=== PATIENT | female | born 1995 | race Hispanic/Latino ===

== ENCOUNTER 2019-12-15 18:39 | Emergency (ER) | payer OTHER, SELFPAY ==
[2019-12-15] VITALS (7 sets, daily range): BP systolic 112–131; BP diastolic 51–63; PULSE 54–70; RESP 15–16; TEMP 36.6; O2SAT 99–100
--- NOTE | 2019-12-15 19:32 | ED.ABDPAIN ---
HPI - Abdominal Pain General Chief Complaint: Abdominal Pain Stated Complaint: Sharp Pains in Abd, 10 Wks Time Seen by Provider: 12/15/19 19:16 Source: patient and family Mode of arrival: Ambulatory History of Present Illness HPI narrative: Patient here with complains of mid epigastric discomfort radiating to the back. Starting this morning. Patient has had a lot of nausea and vomiting since finding out she was October 02. Has hard time keeping any food down. Able to tolerate water, little to eat, no vaginal discharge or bleeding. No pelvic pain. No urinary complaints. No prior abdominal surgical history. Patient is A1. Had a miscarriage at 6 weeks gestation. Never saw clinical allergist for that . Has not seen community mental health worker for this . First appointment January 13. She is taking vitamins. OB is with the [employer] [facility] Home Medications Medication Instructions Recorded Confirmed prenat.vits,sharlene,[id number] 1 tab PO DAILY 07/01/19 07/01/19 Previous Rx's Medication Instructions Recorded cyclobenzaprine 10 mg tablet 10 mg PO BID #14 tab 07/01/19 Allergies Allergy/AdvReac Type Severity Reaction Status Date / Time No Known Drug Allergies Allergy Verified 07/01/19 16:14 Review of Systems Review of Systems Narrative: GENERAL: Denies chills, fatigue, malaise, fever, sweats. HEENT: Denies sinus pain, ear pain, sore throat, difficulty swallowing, dizziness. RESPIRATORY: Denies dyspnea, cough, wheezing, hemoptysis, sputum. CARDIOVASCULAR: Denies chest pain, palpitations, orthopnea, edema, GASTROINTESTINAL: Complains of epigastric pain, nausea vomiting, no blood in emesis or stools : Denies dysuria, frequency, incontinence, hematuria, urinary retention. No vaginal discharge or bleeding or fluid leak MUSCULOSKELETAL: denies weakness, joint pain, or bony pain SKIN: Denies rash, skin lesions, or other NEUROLOGIC: Denies weakness, headache, numbness, change in speech, confusion, seizures, incoordination. PSYCHIATRIC: No concerning psychosocial issues. ROS Unobtainable: All systems reviewed & are unremarkable except as noted in HPI and below Exam Narrative Exam Narrative: GENERAL: patient appears stated age. Well-nourished, well-developed patient, in no distress, not toxic HEAD: Atraumatic. Normocephalic. EYES: Pupils equal round and reactive. Extraocular motions intact. No scleral icterus. No injection or drainage. ENT: Nose without bleeding, purulent drainage. Throat without erythema, tonsillar hypertrophy or exudate. Airway patent. NECK: Trachea midline. Non tender CARDIOVASCULAR: Regular rate and rhythm without murmurs, gallops, or rubs. RESPIRATORY: Clear to auscultation. Breath sounds equal bilaterally. No wheezes, rales, or rhonchi. GASTROINTESTINAL: Abdomen soft, reproducible epigastric tenderness, bowel sounds normal, no peritoneal signs, EXTREMITIES: No edema or joint tenderness. BACK: Nontender without deformity or crepitance. No flank tenderness. NEURO: AOx3. SKIN: No rash or erythema of visible areas Initial Vital Signs Initial Vital Signs: Vital Signs Temperature 97.8 F 12/15/19 18:50 Pulse Rate 70 12/15/19 18:50 Respiratory Rate 16 12/15/19 18:50 Blood Pressure 117/62 12/15/19 18:50 Pulse Oximetry 100 12/15/19 18:50 Course Course Course Narrative: Patient nausea vomiting and epigastric pain resolved. Has ate and drink here. No vomiting. Orders Ordered: ED Orders 12/15/19 19:15 Urine Microscopic Stat 12/15/19 19:55 Complete Blood Count AUTO DIFF Stat Comprehensive Metabolic Panel Stat HCG Quantitative /Beta subunit Stat Lipase Stat Discontinued Medications Sodium Chloride (Normal Saline 0.9%) 1,000 mls @ 1,000 mls/hr IV BOLUS ONE Stop: 12/15/19 20:28 Last Infusion: 12/15/19 21:46 Dose: 0 mls/hr Documented by: Admin: 12/15/19 20:02 Dose: 1,000 mls/hr Documented by: NATE Sodium Chloride (Normal Saline 0.9%) 1,000 mls @ 1,000 mls/hr IV BOLUS ONE Stop: 12/15/19 23:11 Last Infusion: 12/15/19 23:31 Dose: 0 mls/hr Documented by: Admin: 12/15/19 22:57 Dose: 1,000 mls/hr Documented by: JOYCE Ondansetron HCl (Zofran) 4 mg IV NOW ONE Stop: 12/15/19 21:39 Last Admin: 06/29/20 21:48 Dose: 4 mg Documented by: JOYCE Reevaluation(s) Reevaluation #1: Patient no distress. Has already ate and drank. Finishing 2nd L of normal saline. No nausea or vomiting. She desires discharge home. at bedside. She does have follow-up OBGYN at the [facility]. 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 Time: 23:21 Vital Signs Vital signs: Vital Signs - 8 hr 12/15/19 18:50 12/15/19 22:00 12/15/19 22:30 Temperature 97.8 F Pulse Rate 70 54 L 57 L Respiratory Rate 16 16 15 Blood Pressure 117/62 113/51 L 131/63 Pulse Oximetry 100 99 99 12/15/19 22:40 12/15/19 22:50 12/15/19 23:01 Temperature Pulse Rate 55 L 60 68 Respiratory Rate 16 Blood Pressure 112/58 L Pulse Oximetry 99 99 100 12/15/19 23:20 Temperature Pulse Rate 54 L Respiratory Rate Blood Pressure Pulse Oximetry 100 MDM - Abdominal Pain Differential Diagnosis Differential diagnosis: Likely abdominal pain Lab Data Attestation: I reviewed the patient's lab results. Result diagrams: 12/15/19 19:55 12/15/19 19:55 Labs: Lab Results 12/15/19 12/15/19 12/15/19 Range/Units 19:15 19:55 19:55 WBC 12.4 H (4.5-11.0) X10^3/uL RBC 4.00 (4.0-5.2) X10^6/uL Hgb 12.0 (12.0-16.0) g/dL Hct 34.1 L (36-46) % MCV 85.1 (80-100) fL MCH 30.0 (26-34) PG MCHC 35.2 (30-36) % RDW 12.7 (11.6-14.8) % Plt Count 317 (150-400) X10^3/uL Neut % (Auto) 63.1 (50-75) % Lymph % (Auto) 29.2 (25-40) % [place] % (Auto) 5.0 (3-14) % Eos % (Auto) 1.9 L (2-4) % Baso % (Auto) 0.8 (0-2) % Neut # (Auto) 7800 H (5690-6628) /uL Lymph # (Auto) 3600 (4715-3847) /uL [place] # (Auto) 600 (0-900) /uL Eos # (Auto) 200 (0-450) /uL Baso # (Auto) 100 (0-100) /uL Sodium (137-145) mmol/L Potassium (3.4-5.1) mmol/L Chloride (98-107) mmol/L Carbon Dioxide (22-32) mmol/L BUN (7-17) mg/dL Creatinine (0.52-1.04) mg/dL Estimated GFR (>60) mL/min BUN/Creatinine Ratio (6-22) Glucose (70-100) mg/dL Calcium (8.4-10.2) mg/dL Total Bilirubin (0.2-1.3) mg/dL AST (14-36) IU/L ALT (<35) IU/L Alkaline Phosphatase (38-126) U/L Total Protein (6.3-8.2) g/dL Albumin (3.5-5.0) g/dL Globulin (1.7-4.1) g/dL Albumin/Globulin Ratio (1.0-2.8) Lipase 48 (23-300) U/L HCG, Quant 315003 mIU/mL Urine RBC 0-1/hpf (0-5/HPF) Urine WBC 0-1/hpf (0-5/HPF) Urine Bacteria None seen (None) Ur Culture Indicated? Cult not indicated 12/15/19 Range/Units 19:55 WBC (4.5-11.0) X10^3/uL RBC (4.0-5.2) X10^6/uL Hgb (12.0-16.0) g/dL Hct (36-46) % MCV (80-100) fL MCH (26-34) PG MCHC (30-36) % RDW (11.6-14.8) % Plt Count (150-400) X10^3/uL Neut % (Auto) (50-75) % Lymph % (Auto) (25-40) % [place] % (Auto) (3-14) % Eos % (Auto) (2-4) % Baso % (Auto) (0-2) % Neut # (Auto) (0577-9270) /uL Lymph # (Auto) (9134-6891) /uL [place] # (Auto) (0-900) /uL Eos # (Auto) (0-450) /uL Baso # (Auto) (0-100) /uL Sodium 135 L (137-145) mmol/L Potassium 4.3 (3.4-5.1) mmol/L Chloride 105 (98-107) mmol/L Carbon Dioxide 22 (22-32) mmol/L BUN 9 (7-17) mg/dL Creatinine 0.41 L (0.52-1.04) mg/dL Estimated GFR > 60.0 (>60) mL/min BUN/Creatinine Ratio 22.0 (6-22) Glucose 85 (70-100) mg/dL Calcium 10.2 (8.4-10.2) mg/dL Total Bilirubin 0.3 (0.2-1.3) mg/dL AST 20 (14-36) IU/L ALT 11 (<35) IU/L Alkaline Phosphatase 57 (38-126) U/L Total Protein 7.3 (6.3-8.2) g/dL Albumin 4.3 (3.5-5.0) g/dL Globulin 3.0 (1.7-4.1) g/dL Albumin/Globulin Ratio 1.4 (1.0-2.8) Lipase (23-300) U/L HCG, Quant mIU/mL Urine RBC (0-5/HPF) Urine WBC (0-5/HPF) Urine Bacteria (None) Ur Culture Indicated? Point of care testing: Urine Dip Bedside Urine Glucose Negative Bedside Urine Bilirubin - Negative Bedside Urine Ketone ++ 40 Urine Specific [place] 1.010 Bedside Urine Occult Blood +/- Bedside Urine pH 6.0 Bedside Urine Protein - Negative Bedside Urine Urobilinogen - Negative Bedside Urine Nitrite - Negative Bedside Urine Leukocytes - Negative Esterase MDM Narrative Medical decision making narrative: No pelvic exam at this time, no pelvic pain, no complaints of vaginal discharge or bleeding or fluid leakage. Patient has had daily nearly intractable nausea and vomiting likely causing gastritis, likely hyperemesis No ultrasound indicate testing. Patient is 10 weeks . No no no pelvic pain. Pain is epigastric in reproducible. Low suspicion for ectopic or miscarriage. Discharge Plan Departure Patient Disposition: Home Clinical Impression: Hyperemesis gravidarum Gastritis Qualifiers: Gastritis type: unspecified gastritis Chronicity: acute Gastritis bleeding: without bleeding Qualified Code(s): K29.00 - Acute gastritis without bleeding Discharge Date/Time: 12/15/19 23:32 Instructions: DI for Hyperemesis Gravidarum, Nausea and Vomiting-Adult Activity Restrictions/Additional Instructions: Call your OBGYN doctor tomorrow morning for office recheck this week and for possible prescriptions for nausea and vomiting. Drink plain fluids. Return if worse. Continue vitamins Prescriptions: No Action prenat.vits,sharlene,[id number] Tablet 1 tab PO DAILY RF: 0 cyclobenzaprine 10 mg tablet 10 mg PO BID Qty: 14 RF: 0 Referrals: Nancy Hobson DO [Primary Care Provider] -
[2019-12-15 20:02] LABS: Add Manual Diff / Slide Review NO; Basophils Absolute Auto 100 /uL (0-100); Basophils Percent Auto 0.8 % (0-2); Eosinophils Absolute Auto 200 /uL (0-450); Eosinophils Percent Auto 1.9 % (2-4); Hematocrit 34.1 % (36-46); Lymphocytes Absolute Auto 3600 /uL (1100-4500); Lymphocytes Percent Auto 29.2 % (25-40); Mean Corpuscular HGB Conc 35.2 % (30-36); Mean Corpuscular Volume 85.1 fL (80-100); Monocytes Absolute Auto 600 /uL (0-900); Neutrophils Absolute Auto 7800 /uL (1500-7000); Neutrophils Percent Auto 63.1 % (50-75); Platelet Count 317 X10^3/uL (150-400); Red Cell Distribution Width 12.7 % (11.6-14.8); White Blood Cell Count 12.4 X10^3/uL (4.5-11.0)
[2019-12-15] MEDS: SODIUM CHLORIDE 0.9% 1,000 ML 1000 ML IV ×2 (20:02→22:57)
[2019-12-15 20:11] LABS: Lipase 48 U/L (23-300)
[2019-12-15 20:35] LABS: Alanine Aminotransferase 11 IU/L (<35); Albumin 4.3 g/dL (3.5-5.0); Albumin Globulin Ratio 1.4 (1.0-2.8); Alkaline Phosphatase 57 U/L (38-126); Aspartate Aminotransferase 20 IU/L (14-36); Bilirubin Total 0.3 mg/dL (0.2-1.3); Blood Urea Nitrogen 9 mg/dL (7-17); Calcium 10.2 mg/dL (8.4-10.2); Carbon Dioxide 22 mmol/L (22-32); Chloride 105 mmol/L (98-107); Estimated Glomerular Filt Rate > 60.0 mL/min (>60); Glucose 85 mg/dL (70-100); HEMOLYSIS < 15 (0-50); Potassium 4.3 mmol/L (3.4-5.1); Sodium 135 mmol/L (137-145); Total Protein 7.3 g/dL (6.3-8.2)
[2019-12-15 20:52] LABS: Bacteria Urine None Seen; Culture Indicated Urine Cult Not Indicated; RBC Urine 0-1/HPF (0-5/HPF); WBC Urine 0-1/HPF (0-5/HPF)
[2019-12-15 20:53] LABS: HCG Quantitative /Beta subunit 112360 mIU/mL
[2019-12-15] MEDS: ONDANSETRON 4 MG/2 ML INJ IV (21:48)
--- NOTE | 2019-12-15 22:57 | PC.NURSE ---
I attempted and was unsuccessful at obtaining heart tones at this time. Dr. Gomez aware.
== END 2019-12-15 23:32 | disposition home or self-care (01) ==
PROVIDERS: Emergency Provider Emergency Medicine; PCP Family Medicine
DX: O21.0 Mild hyperemesis gravidarum (principal); Z3A.10 10 weeks gestation of pregnancy; K29.00 Acute gastritis without bleeding
CPT/HCPCS: 36415; 80053; 81003; 81015; 83690; 84702; 85025; 96361; 96374; 99284; J2405

== ENCOUNTER → 2020-06-14 10:51 | Outpatient (CLI) | payer OTHER, SELFPAY ==
[2020-06-15 07:57] LABS: Strep Grp B PCR NEG for Grp B Strep
== END ==
PROVIDERS: PCP Family Medicine; Visit Provider Obstetrics & Gynecology
DX: Z34.83 Encounter for supervision of other normal pregnancy, third trimester (principal); Z3A.36 36 weeks gestation of pregnancy
CPT/HCPCS: 87653

== ENCOUNTER 2020-06-25 16:15 | Outpatient (CLI) | payer OTHER, SELFPAY ==
--- NOTE | 2020-06-25 16:42 | P.TNLD_ITS ---
Visit Information Visit Information Date of evaluation: 06/25/20 Primary OB Provider: Shelly Lopez On-call OB Provider: Elisabeth Larson Reason for Evaluation: Yes rule out labor Comments/Additional reasons for admission: Patient complained of contractions, possible rupture membranes, decreased movement. [facility] Medical History (Updated 06/25/20 @ 16:44 by Elisabeth Larson MD) Allergic rhinitis Anxiety Depression Hyperemesis gravidarum (~12/2019) Menorrhagia Surgical History H/O oral surgery H/O wisdom tooth extraction (~03/2019) Family History (Updated 05/12/20 @ 10:31 by Daria Hooks, STEFF) Mother Depression Anxiety Migraine Father No problems noted. Grandmother Alzheimer's dementia Grandfather Cancer Lung cancer Grandmother Diabetes mellitus Grandfather No problems noted. Family/Other Diabetes mellitus Family/Other Altered cardiac tissue perfusion Brother Depression Social History (System 05/10/20 @ 12:42 by Cass Swift) marital status: household members: spouse lives independently: Yes pets and animals: Yes (Dogs X 2 ) education level: college (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 ) current occupational exposures/hazards: Yes janice/mormon: Zoroastrianism special janice needs: No (Maile is Zoroastrianism and is Sikh) Smoking Status: Never smoker alcohol intake: former (pre- : socially ) substance use type: does not use and marijuana (Quit 4 years ago) Evaluation Evaluation Baseline heart rate: 130 Variability: Moderate (11-25) monitor accelerations: Present monitor decelerations: Absent Uterine Contraction Intensity: Mild Category of Tracing: Reactive Status: Category l Cervical dilation (cm): 0 Cervical effacement (%): 0 station: -4 Non-invasive Membranes Rupture Test: negative Diagnosis, Plan/Disposition Final Diagnosis (1) False labor: Status: Acute (2) 38 weeks gestation of : Status: Acute Plan/Disposition Plan: Patient was discharged home with routine precautions. Continue her routine OB appointments OB Disposition: home
== END 2020-06-25 16:45 | disposition home or self-care (01) ==
LOC: LABOR 16:21 → OB 06-28 12:40
PROVIDERS: PCP Family Medicine; Referring Provider Obstetrics & Gynecology; Visit Provider Obstetrics & Gynecology
DX: O36.8130 Decreased fetal movements, third trimester, not applicable or unspecified (principal); N89.8 Other specified noninflammatory disorders of vagina; Z3A.38 38 weeks gestation of pregnancy
CPT/HCPCS: 59025; 84112; G0378; G0379

== ENCOUNTER 2020-07-12 14:37 | Outpatient (CLI) | payer OTHER, SELFPAY | END 2020-07-12 15:23 | disposition home or self-care (01) | LOC: LABOR 15:23 → OB 07-13 07:35 | PROVIDERS: PCP Family Medicine; Referring Provider Obstetrics & Gynecology; Visit Provider Obstetrics & Gynecology | DX: O36.8130 Decreased fetal movements, third trimester, not applicable or unspecified (principal); Z3A.40 40 weeks gestation of pregnancy; Z01.812 Encounter for preprocedural laboratory examination; Z20.822 Contact with and (suspected) exposure to COVID-19 | CPT/HCPCS: 59025; 87635; G0378; G0379 ==

== ENCOUNTER → 2020-07-12 16:15 | Outpatient (CLI) | payer OTHER, SELFPAY ==
[2020-07-12 17:01] LABS: COVID19 -Nasal RAPID Negative (Negative)
== END ==
PROVIDERS: PCP Family Medicine; Visit Provider Obstetrics & Gynecology
DX: Z01.812 Encounter for preprocedural laboratory examination (principal); Z20.822 Contact with and (suspected) exposure to COVID-19
CPT/HCPCS: 87635

== ENCOUNTER 2020-07-15 18:38 | Inpatient (IN) | payer OTHER, SELFPAY ==
[2020-07-15 20:21] LABS: COVID19 -Nasal RAPID Negative (Negative)
[2020-07-15 20:24] VITALS: BP 123/76
[2020-07-15] MEDS: DINOPROSTONE VAG (CERVIDIL) 10 MG VAG (20:27)
[2020-07-15 20:44] LABS: Add Manual Diff / Slide Review NO; Basophils Absolute Auto 100 /uL (0-100); Basophils Percent Auto 0.5 % (0-2); Eosinophils Absolute Auto 200 /uL (0-450); Eosinophils Percent Auto 1.2 % (2-4); Lymphocytes Absolute Auto 2800 /uL (1100-4500); Lymphocytes Percent Auto 21.3 % (25-40); Mean Corpuscular HGB Conc 33.4 % (30-36); Mean Corpuscular Hemoglobin 29.2 PG (26-34); Mean Corpuscular Volume 87.5 fL (80-100); Monocytes Absolute Auto 900 /uL (0-900); Monocytes Percent Auto 6.9 % (3-14); Neutrophils Absolute Auto 9100 /uL (1500-7000); Neutrophils Percent Auto 70.1 % (50-75); Platelet Count 271 X10^3/uL (150-400); Red Blood Cell Count 4.11 X10^6/uL (4.0-5.2); Red Cell Distribution Width 14.5 % (11.6-14.8)
[2020-07-16] MEDS: LACTATED RINGERS 1,000 ML 100 ML IV ×4 (08:23→22:54)
[2020-07-16] MEDS: OXYTOCIN PREMIX 30 UNIT/500 ML PLAST..BAG IV (08:32)
[2020-07-16] MEDS: FENT 2MCG/ML BUPIV 0.125% EPI 200 MCG/100 ML PLAST..BAG 10 MCG EPIDURAL (20:11)
--- NOTE | 2020-07-16 20:42 | PM.OBHP.1 ---
OB HPI Date/Time Date of admission: 07/16/20 Date Patient Seen: 07/16/20 Time Patient Seen: 07:50 History of Present Condition Chief complaint: Labor : 2 Para: 0 Estimated Date of Delivery: 07/09/20 Estimated Gestational Age (weeks): 41 Narrative: Maile Max is a 25 year old female 2 para 0 at 41 weeks gestation who presented last evening for Cervidil. She had that placed at 8:30 p.m.. She has had mild contractions overnight. Indications Indication for induction OB: post dates History of Present care: good care, initiated at week # (10), number of visits (13) and pounds weight gain (44) Dating criteria: LMP confirmed by 1st trimester US Ultrasounds: normal 1st trimester US and normal mid trimester US Obstetrical complications: none Medical complications: none Preadmission Labs Blood type: O (+) positive -: Antibody screen: negative, GBS status: negative, HBsAG: negative, HIV: negative and RPR/VDLR: negative -: Chlamydia screen: not detected and Gonorrhea screen: not detected -: Rubella: immune and Varicella: immune HCT: 36 HCAB: negative PAP: Normal Integrated screen: Negative Urine: Neg 1 hr GTT: 94 Prior (ies) History: SAB Evaluation Evaluation Baseline heart rate: 135 Variability: Moderate (11-25) monitor accelerations: Present monitor decelerations: Absent Contraction Frequency (minutes): 4 Uterine Contraction Intensity: Mild Status: Category l Cervical dilation (cm): 2 Cervical effacement (%): 85 station: -1 Laboratory results: Laboratory Tests 07/15/20 07/15/20 07/15/20 20:00 20:00 20:00 WBC 13.0 H RBC 4.11 Hgb 12.0 Hct 36.0 MCV 87.5 MCH 29.2 MCHC 33.4 RDW 14.5 Plt Count 271 Neut % (Auto) 70.1 Lymph % (Auto) 21.3 L [place] % (Auto) 6.9 Eos % (Auto) 1.2 L Baso % (Auto) 0.5 Neut # (Auto) 9100 H Lymph # (Auto) 2800 [place] # (Auto) 900 Eos # (Auto) 200 Baso # (Auto) 100 SARS-CoV-2 (PCR) Negative Blood Type O Positive Antibody Screen Negative PFSH Medical History (Updated 07/08/20 @ 09:59 by Shelly Lopez MD) Allergic rhinitis Anxiety Depression Hyperemesis gravidarum (~12/2019) Menorrhagia Surgical History H/O oral surgery H/O wisdom tooth extraction (~03/2019) Family History (Updated 05/12/20 @ 10:31 by Daria Hooks, STEFF) Mother Depression Anxiety Migraine Father No problems noted. Grandmother Alzheimer's dementia Grandfather Cancer Lung cancer Grandmother Diabetes mellitus Grandfather No problems noted. Family/Other Diabetes mellitus Family/Other Altered cardiac tissue perfusion Brother Depression Social History (System 05/10/20 @ 12:42 by Cass Swift) marital status: household members: spouse lives independently: Yes pets and animals: Yes (Dogs X 2 ) education level: college occupational status: employed current occupational exposures/hazards: Yes janice/baptism: Anabaptist special janice needs: No (Maile is Anabaptist and is Mandaen) Smoking Status: Never smoker alcohol intake: former substance use type: does not use and marijuana Meds Home Medications and Allergies Home Medications Medication Instructions Recorded Confirmed Type prenat.vits,sharlene,[id number]-fivf-pgmgf 1 tab PO DAILY 07/01/19 07/15/20 History Allergies Allergy/AdvReac Type Severity Reaction Status Date / Time No Known Drug Allergies Allergy Verified 07/12/20 15:52 Exam Const General: cooperative and in distress (mild with contractions) Nutritional Appearance: average body habitus Orientation: alert, awake and oriented x3 Resp Auscultation: clear to auscultation bilaterally Cardio Rate: regular rate Rhythm: regular rhythm External Female Exam: normal external appearance Manual OB Exam: dilated 2, effaced (85) and station -1 Uterus Location (Fundal Height): 40 Presentation: vertex Estimated Weight (lbs): 8 Objective Labs Result Diagrams: 07/15/20 20:00 Labs: Laboratory Results - last 24 hr 07/15/20 07/15/20 20:00 20:00 WBC 13.0 H RBC 4.11 Hgb 12.0 Hct 36.0 MCV 87.5 MCH 29.2 MCHC 33.4 RDW 14.5 Plt Count 271 Neut % (Auto) 70.1 Lymph % (Auto) 21.3 L [place] % (Auto) 6.9 Eos % (Auto) 1.2 L Baso % (Auto) 0.5 Neut # (Auto) 9100 H Lymph # (Auto) 2800 [place] # (Auto) 900 Eos # (Auto) 200 Baso # (Auto) 100 Blood Type O Positive Antibody Screen Negative Assessment and Plan Assessment and Plan Assessment and Plan narrative: Assessment: 25-year-old 2 para 0 at 41 weeks gestation status post Cervidil last evening Cervix favorable GBS negative Plan: Pitocin per protocol 2 Artificial rupture of membranes when able Epidural as necessary Expected management to spontaneous vaginal delivery Time Spent with Patient Total time spent with greater than 50% in coordination of care (as documented) at patient's floor/unit and/or counseling patient:: 15-24 minutes
--- NOTE | 2020-07-16 20:53 | PM.OBPNLAB ---
Date/Time Date Patient Seen: 07/16/20 Time Patient Seen: 14:22 Pain Control Pain control: epidural Pelvic Exam Dilation (cm): 2 Effacement (%): 85 station: -1 Amniotic membrane status: Bulging Contractions Contractions on admission: none Monitor mode: External Pitocin rate (mU/min): 7 Contraction frequency (min): 3 Contraction duration (min): 1 Contraction pattern: Regular Contraction intensity: Strong/Firm Status status: Category l Heart Rate Baseline: 135 Monitor Accelerations: Present Monitor Decelerations: Absent Monitor Variability: Moderate Assessment and Plan Assessment: active labor Plan: continuous present management Comments: AROM with copious clear amniotic fluid
--- NOTE | 2020-07-16 20:55 | PM.OBPNLAB ---
Date/Time Date Patient Seen: 07/16/20 Time Patient Seen: 21:01 Pain Control Pain control: tolerating well Pelvic Exam Dilation (cm): 10 Effacement (%): 100 station: 0 Amniotic membrane status: Ruptured Contractions Contractions on admission: regular Monitor mode: External Pitocin rate (mU/min): 18 Contraction frequency (min): 2 Contraction duration (min): 1 Contraction pattern: Regular Contraction intensity: Strong/Firm Status status: Category l Heart Rate Baseline: 140 Monitor Accelerations: Present Monitor Decelerations: Absent Monitor Variability: Moderate Assessment and Plan Assessment: active labor and induction ongoing Comments: Patient to be placed flat on her back Rocker-bottom with pushing
--- NOTE | 2020-07-16 21:42 | PM.OBPNLAB ---
Date/Time Date Patient Seen: 07/16/20 Time Patient Seen: 21:43 Pain Control Pain control: tolerating well and epidural Pelvic Exam Dilation (cm): 10 Effacement (%): 100 station: 0 Amniotic membrane status: Ruptured Contractions Contractions on admission: regular Monitor mode: External Pitocin rate (mU/min): 18 Contraction frequency (min): 2 Contraction pattern: Regular Contraction intensity: Strong/Firm Status status: Category l Heart Rate Baseline: 135 Monitor Accelerations: Present Monitor Decelerations: Absent Monitor Variability: Moderate Assessment and Plan Assessment: other (Failure of descent of the head) Plan: Comments: The risks, benefits, and alternatives to the procedure were explained to the patient. The risks including bleeding, infection, injury to the bowel, bladder, or ureters. She understands these risks and agrees to proceed. A full par Q was held and consent form was signed.
--- NOTE | 2020-07-16 21:44 | PM.PREOP ---
Pre-operative Note COVID-19 COVID-19 status: Negative Result date/Date tested (Pos, Neg/Pending): 07/15/20 Interval Note History & Physical reviewed/Exam performed by Physician: Yes Changes to H&P: No H&P completed within 30 days and has changed as indicated here:: 07/16/20
[2020-07-16] MEDS: CEFAZOLIN 2 GM/100 ML FROZ.PIGGY IV (22:20)
--- NOTE | 2020-07-16 22:24 | SUR.OPER ---
Supine on Padded OR bed, head on pillow, safety belt at thigh, arms secured on padded arm boards at <90 degrees abduction. Bump under right buttock. Legs uncrossed with pillow under knees, gel pad to heels, tape over blanket to lower legs.
--- NOTE | 2020-07-16 22:38 | SUR.OPER ---
Viable male delivered at 22:28. Cord blood vials x2 and placenta sent with L&D RN.
--- NOTE | 2020-07-16 23:11 | P.OP_ITS ---
Operative Date/Time/Diagnoses Date of procedure: 07/16/20 Time of procedure: 23:11 Pre-op diagnosis: Forty-one weeks gestation Failure of descent of the head Post-op diagnosis: same Procedure & Clinicians Procedure: Procedures Operation Date: 07/16/20 22:00 Actual Procedures Side Surgeon p Section Shelly Lopez MD Indications: Failure of descent of the head during stage II of labor Surgeon: Shelly Lopez Deep Submergence Vehicle Operator: Feli Coto Anesthesia Type: Epidural (With Duramorph) Operative Notes Findings: Live male infant in the [facility] presentation Normal uterus, tubes, and ovaries Closure Type: primary Specimen(s): other (Cord bloods, placenta) Applied: catheter (To continuous drainage, bloody urine upon arrival to the operating room) Estimated blood loss (mL): 800 Blood products transfused: none Procedure in detail: The patient was taken to the operating room where she was placed in the dorsal supine position with a leftward tilt. The infant's head was lifted out of the pelvis with pressure from the vagina. Once epidural anesthesia was found to be adequate, she was prepped and draped in the usual sterile fashion. A timeout was performed. After epidural analgesia was found to be adequate, a Pfannenstiel skin incision was made 2 fingerbreadths above the pubic symphysis and carried through to the underlying layer fascia. The fascia was nicked in the midline, and the incision extended bilaterally with the Cedeño scissors. The superior aspect of the fascial incision was grasped with a Bowlus clamps, elevated, and the underlying rectus muscles dissected off sharply and bluntly. Attention was then turned to the inferior aspect of this incision which in a similar fashion was grasped with a Liborio clamps, elevated, and the underlying rectus muscles dissected off sharply and bluntly. The rectus muscles were in the midline. The peritoneum was identified, grasped between 2 hemostats, and entered sharply with the Metzenbaum scissors. This incision was extended superiorly and inferiorly with good visualization of the bladder. The bladder blade was inserted. The vesicouterine peritoneum was identified, grasped with the pickup, and entered sharply with the Metzenbaum scissors. This incision was extended bilaterally, and the bladder flap was created digitally. The bladder blade was reinserted. The lower uterine segment was incised in a transverse fashion with the scalpel. Upon entering the amniotic sac there was a small amount of clear amniotic fluid. The infant's head was delivered with vacuum assistance. The nose and mouth were suctioned with bulb suction. The remainder of the body delivered without difficulty. The cord was double clamped and cut. The was handed off to waiting RN and RT. The placenta was delivered manually. The uterus was cleared of all clots and debris. There was found to be an extension of the uterine incision on the right side. This was repaired in a running interlocking suture with #1 chromic. The uterine incision was repaired with #1 chromic in a running interlocking fashion, and a second layer the same suture was used for an imbricating layer. Hemostasis was achieve d. The tubes and ovaries were examined and were found to be normal. The gutters were cleared of all clots and debris. The bladder flap was reapproximated using 2-0 Vicryl in a running fashion. The parietal peritoneum was closed using 2-0 Vicryl in a running fashion. The fascia was reapproximated using 0 Vicryl in a running fashion. Subcutaneous layer was copiously irrigated with warm normal saline. 5 simple interrupted sutures of 3-0 Vicryl were placed to reapproximate the subcutaneous layer. The skin was closed with 4-0 Biosyn in a subcuticular fashion. Steri-Strips were placed. An Aquacel dressing was placed. The uterus was expressed of a small amount of old blood. Sponge, lap, and instrument counts were correct x-2. The patient tolerated the procedure well, and was taken to PACU in stable condition. Approximately 100 cc of blood tinged urine. 1400 cc of crystalloid. Complications: none Post-operative Condition: stable Disposition: PACU Plan for aftercare: To the center after recovery
[2020-07-16 23:14] VITALS: BP 108/64; PULSE 98; RESP 12; TEMP 37.5; O2SAT 100
--- NOTE | 2020-07-16 23:18 | PM.PROC.1 ---
Procedures Date/Time Date of procedure: 07/16/20 Time of procedure: 22:23 General Procedure description: Manager Labor Delivery Documentation I assisted the OB construction teacher in the section for this patient. My responsibilities included retracting and suctioning, providing fundal pressure during delivery and following with suture during closure. Please see the OB's note for details of the surgery. Complications: other (heavy bleeding)
[2020-07-16 23:19] VITALS: BP 110/68; PULSE 94; RESP 16; O2SAT 100
[2020-07-16 23:24] VITALS: BP 105/67; PULSE 95; RESP 10; O2SAT 100
[2020-07-17] MEDS: OXYTOCIN 10 UNIT/ML VIAL IV
[2020-07-17] MEDS: LACTATED RINGERS 1,000 ML 100 ML IV ×2 (00:13→02:01)
[2020-07-17] MEDS: miSOPROStoL 200 MCG TABLET 1000 MCG PR (00:30)
[2020-07-17] MEDS: METHYLERGONOVINE 0.2 MG/ML VIAL IM (00:55)
[2020-07-17 05:59] LABS: Hematocrit 22.4 % (36-46); Hemoglobin 7.4 g/dL (12.0-16.0)
[2020-07-17] MEDS: KETOROLAC 30 MG/ML VIAL IV ×2 (06:33→18:27)
[2020-07-17] MEDS: PRENATAL VIT,CALC/IRON/FOLIC 1 TABLET 1 TAB PO (09:17)
[2020-07-17] MEDS: DOCUSATE 250 MG CAPSULE PO (09:17)
[2020-07-17] MEDS: IRON SUCROSE 100 MG in SODIUM CHLORIDE 0.9% 100 ML 420 ML IV (10:12)
--- NOTE | 2020-07-17 12:41 | P.PNOB_ITS ---
Subjective - OB Subjective Patient comments: no complaints, pain well controlled, tolerating diet and other (Rosa catheter still in) baby status: doing well and nursing well [place] feeding status: exclusively breast feeding Date Patient Seen: 07/17/20 Time Patient Seen: 12:41 Interval history: Patient is a 25-year-old 1 para 1 postop day 0-1 status post primary low-transverse section for failure of descent of the head. She had an 800 cc blood loss in the OR. Last evening at midnight she had another episode of hemorrhage with 900 cc. This was treated by the RN. This morning her hematocrit is 22. She is asymptomatic. No dizziness or lightheadedness. Rosa catheter still in place. She is tolerating a diet. is going well. Exam Vital Signs (past 8 hours): Oxygen Delivery Method Room Air Narrative Exam Narrative: Generally: Patient is sitting up in bed, no acute distress Lungs: Clear to auscultation bilaterally Cardiovascular: Regular rate and rhythm Fundus: U -1 Incision: Clean dry and intact with Aquacel dressing Extremities: Trace edema, negative Homans Objective Labs Result Diagrams: 07/17/20 05:35 Labs: Laboratory Results - last 24 hr 07/17/20 05:35 Hgb 7.4 L Hct 22.4 L Assessment & Plan Plan day: 1 plan OB: routine postop care Time Spent With Patient Time: Total time spent is greater than 50% in coordination of care (as documented) at patient's floor/unit and/or counseling patient: Time with patient: less than 15 minutes
[2020-07-17] MEDS: OXYCODONE IR 5 MG TABLET PO ×2 (17:13→21:02)
[2020-07-17] MEDS: ACETAMINOPHEN 325 MG TABLET 650 MG PO (17:13)
[2020-07-18] MEDS: IBUPROFEN 600 MG TABLET PO ×3 (00:07→11:13)
[2020-07-18] MEDS: ACETAMINOPHEN 325 MG TABLET 650 MG PO ×3 (00:07→11:13)
[2020-07-18] MEDS: OXYCODONE IR 5 MG TABLET PO ×2 (05:33→11:12)
[2020-07-18] MEDS: DOCUSATE 250 MG CAPSULE PO (10:07)
[2020-07-18] MEDS: PRENATAL VIT,CALC/IRON/FOLIC 1 TABLET 1 TAB PO (10:08)
[2020-07-18] MEDS: IRON SUCROSE 300 MG in SODIUM CHLORIDE 0.9% 100 ML 115 ML IV (10:12)
--- NOTE | 2020-07-18 12:12 | PM.OBDS.1 ---
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 Patient presented for cervical ripening with Cervidil on July 15, 2020. She had a favorable cervix on the morning of July 16, 2020 and was started on Pitocin. Artificial rupture of membranes was performed. She received an epidural for pain management. She progressed in labor to complete dilation. With over an hour of pushing there was no descent of the head despite position changes. A decision was made to proceed with a primary low-transverse section. She underwent a primary low-transverse section with increased blood loss at 800 cc. She then had another episode of bleeding several hours later of 900 cc. Her hematocrit dropped to 22. She received an iron infusion before discharge. She is asymptomatic. is going well. She is tolerating a diet. She has been able to void without catheter. She is passing gas. She is ambulating without assistance. Peripartum Data Infant Delivery Method: Section Laceration Description: None Procedures: Cervidil cervical ripening Pitocin augmentation of labor Artificial rupture of membranes Primary low-transverse section Epidural analgesia complications: uterine atony (900 cc of blood loss requiring Methergine and Cytotec) 1: Gender: Male Disposition of : home Status at Discharge Cognitive/behavioral status at discharge: oriented Functional status at discharge: independent ambulation Overall status at discharge: patient is progressing back to baseline Time Spent with Patient Time attestation: Total time spent providing and/or coordinating discharge services: Time spent: Less than 30 minutes Objective Labs Result Diagrams: 07/17/20 05:35 Exam Vital Signs (past 8 hours): Oxygen Delivery Method Room Air Narrative Exam Narrative: Generally: Patient is sitting up in bed, holding infant, no acute distress Lungs: Clear to auscultation bilaterally Cardiovascular: Regular rate and rhythm Fundus: Firm at U -2 Incision: Clean dry and intact with Aquacel dressing Extremities: Negative Homans, trace edema Discharge Plan Discharge Plan Patient Disposition: Home Provider Discharge Comment: Call with fever, chills, redness or drainage around the incision, or bleeding vaginally more than a pad in an hour Ibuprofen 600 mg every 6 hours Tylenol 650 mg every 6 hours as needed Stool softener Iron Drink plenty of fluids Discharge orders & Medications Prescriptions: New ibuprofen 600 mg tablet 600 mg PO Q6H PRN (Reason: cramping or pain) Qty: 30 RF: 2 oxycodone 5 mg tablet 5 mg PO Q4H PRN (Reason: pain) Qty: 20 RF: 0 Continued prenat.vits,sharlene,[id number] Tablet 1 tab PO DAILY RF: 0 Follow up/Referrals: Nancy Hobson DO [Primary Care Provider] - Diet/Activity/Treatments Diet: Regular Activity: No heavy lifting, nothing more than the baby Skin/Wound/Dressing Care Report to your healthcare provider any signs of infection, such as:: chills, fever, increased pain, unusual drainage and unusual redness Dressing: Do not remove Visit Report/Discharge Packet Instructions: DI for , DI for Prescription Opioid Use Stand Alone Forms: Discharge: Care Discharge Data Primary Care Provider: Nancy Hobson
[2020-07-18 12:14] VITALS: BP 127/70; PULSE 76; RESP 16; TEMP 36.9
== END 2020-07-18 15:24 | disposition home or self-care (01) | DRG 787 ==
PROVIDERS: Admitting Provider Obstetrics & Gynecology; PCP Family Medicine; Referring Provider Obstetrics & Gynecology; Visit Provider Obstetrics & Gynecology
PROC: 10D00Z1 Extraction of Products of Conception, Low, Open Approach (ICD-10-PCS; CPT 59514; principal; 2020-07-16 22:00)
DX: O48.0 Post-term pregnancy (principal); D62 Acute posthemorrhagic anemia; O64.8XX0 Obstructed labor due to other malposition and malpresentation, not applicable or unspecified; O90.81 Anemia of the puerperium; Z3A.41 41 weeks gestation of pregnancy; Z37.0 Single live birth; Z20.822 Contact with and (suspected) exposure to COVID-19
CPT/HCPCS: 01967; 01968; 36415; 59050; 59515; 85014; 85018; 85025; 86850; 86900; 86901; 87635; C9803; J0690; J1756; J1885; J2210; J2274; J2590; J3010; S0191